=== PATIENT | female | born 1975 | race Hispanic/Latino ===

== ENCOUNTER 2023-05-24 09:50 | Emergency (ER) | payer SELFPAY ==
[2023-05-24] MEDS ORDERED: LORazepam 2 MG/ML SYR.(CARPUJECT) ONE (10:49)
[2023-05-24] MEDS ORDERED: HYDROmorphone 0.5 MG/0.5 ML SYRINGE ONE (10:49)
[2023-05-24] MEDS ORDERED: Ketorolac Tromethamine 30 MG/ML VIAL ONE (10:49)
== END 2023-05-24 11:40 | disposition home or self-care (01) ==
LOC: ERS 09:50
DX: M75.21 Bicipital tendinitis, right shoulder (principal)
CPT/HCPCS: 96374; 96375; J1170; J1885; J2060